=== PATIENT | female | born 1995 | race Caucasian/White ===

== ENCOUNTER → 2018-09-22 13:39 | Outpatient (CLI) | payer OTHER, SELFPAY ==
[2018-09-22 18:26] LABS: Chlamydia Trachomatis by PCR Negative (Negative); Neisserai gonorrhoeae by PCR Negative (Negative); Probe Check PASS; Sample Adequacy Control PASS; Specimen Processing Control PASS
== END ==
PROVIDERS: Visit Provider Obstetrics & Gynecology
DX: Z11.3 Encounter for screening for infections with a predominantly sexual mode of transmission (principal)
CPT/HCPCS: 87491; 87591

== ENCOUNTER → 2019-11-28 | Outpatient (CLI) | payer OTHER, SELFPAY ==
[2019-11-28 15:19] LABS: Glucose 84 mg/dL (74-106); Vitamin D,25 Hydroxy 15.6 ng/mL
[2019-12-01 19:29] LABS: HPV Reflexed? NOT INDICATED
== END | disposition home or self-care (01) ==
PROVIDERS: Visit Provider Obstetrics & Gynecology
DX: R73.09 Other abnormal glucose (principal); N76.1 Subacute and chronic vaginitis
CPT/HCPCS: 36415; 82306; 82947; 83036; 88175; G0145

== ENCOUNTER 2019-11-30 21:28 | Emergency (ER) | payer OTHER, SELFPAY ==
[2019-11-30 21:29] VITALS: BP 148/94; PULSE 79; RESP 18; TEMP 36.5; O2SAT 97; BMI 49.7
--- NOTE | 2019-11-30 21:45 | EKG12_ITS ---
Test Reason : DYSRHYTHMIA Blood Pressure : / mmHG Vent. Rate : 075 BPM Atrial Rate : 075 BPM P-R Int : 158 ms QRS Dur : 098 ms QT Int : 394 ms P-R-T Axes : 046 012 041 degrees QTc Int : 439 ms Normal sinus rhythm Normal ECG Confirmed by EDVIN TANNER, GERBER ([id number]), editor magazine ROSEMARY QUINONES ([id number]) on 12/05/2019 3:11:26 PM Referred By: MR Confirmed By:CY PARDO MD
--- NOTE | 2019-11-30 21:50 | ED.RN ---
no old ekgs
[2019-11-30] MEDS: Ondansetron 4 MG/2 ML Vial IV (22:17)
[2019-11-30] MEDS: 0.9% Normal Saline 1,000 ML 1000 ML IV (22:17)
[2019-11-30 22:21] LABS: Absolute Lymphocyte Count 1.36 X10^3/uL (0.83-4.51); Absolute Neutrophil Count 8.9 X10^3/uL (2.0-7.7); Basophil# 0.02 X10^3/uL; Basophil% 0.2 % (0-1); Eosinophil# 0.06 X10^3/uL; Eosinophils% 0.6 % (0-5); Hematocrit 42.6 % (37-47); Lymphocyte # 1.36 X10^3/ul (4.0); Lymphocyte % 12.6 % (19-41); Mean Corp Hgb Conc 32.9 g/dL (32-36); Mean Corpuscular Hgb 27.2 pg (27.0-32.0); Mean Corpuscular Volume 82.9 fL (81-99); Mean Platelet Vol. 14.7 fl (6.2-12.0); Monocyte# 0.32 X10^3/uL; NRBC Flagged by Analyzer 0 % (0-5); Neutrophil # 8.92 X10^3/uL (2.7-7.7); Neutrophil % 82.9 % (47-70); Platelet Count 108 K/mm3 (150-450); RBC Distribution Width CV 12.3 % (11.6-14.6); RBC Distribution Width SD 37.2 fl (35.1-43.9); Red Blood Count 5.14 M/mm3 (4.2-5.4); White Blood Count 10.8 K/mm3 (4.4-11.0)
[2019-11-30 22:28] LABS: Internal QC Validated? YES +Cl - CLEAR BKGD; Pregnancy, Serum, hCG Quali. NEGATIVE Negative
[2019-11-30 22:47] LABS: Anion Gap 5 (5-15); BUN 14 mg/dL (7-18); BUN/Creat Ratio 15.9 RATIO (10-20); Calcium,Total 8.6 mg/dL (8.5-10.1); Chloride 108 mmol/L (98-107); Creatinine, Serum 0.88 mg/dL (0.55-1.02); EST Glomerular Filtration Rate 84 mL/min (>60); Est Glom Filt Rate - Afr Amer 102 mL/min (>60); Estimated Creatinine Clearance 99.44 ml/min; Glucose 141 mg/dL (74-106); Potassium 4.3 mmol/L (3.5-5.1); Sodium Level 139 mmol/L (136-145); Thyroid Stim Hormone (TSH) 0.76 uIU/mL (0.358-3.74)
--- NOTE | 2019-11-30 23:14 | ED.VISSUMM ---
- ER Visit Summary Date of Service: 11/30/19 Chief Complaint: [] History of Present Illness: The patient is a 24 F [] Physical Examination: [] Test Results: [] Emergency Department Course and Treatment: [] Treatment Plan: [] Disposition: [] Impression: [] This note was generated with [employer] software. It may contain incorrect words, spelling, and punctuation that were not noted in review of the chart prior to signing ED Disposition - Plan for ED Patient: Disposition: Home or Assisted Living Diagnosis: Palpitations Instructions: ED Palpitations Referrals: Care Physician,No Primary [Primary Care Provider] - Additional Instructions: Followup with your PCP as needed
[2019-11-30 23:28] VITALS: BP 153/93; PULSE 73; RESP 20; O2SAT 99
== END 2019-11-30 23:29 | disposition home or self-care (01) ==
PROVIDERS: Emergency Provider Emergency Medicine
DX: R00.2 Palpitations (principal); D69.3 Immune thrombocytopenic purpura; E66.9 Obesity, unspecified; Z68.42 Body mass index [BMI] 45.0-49.9, adult
CPT/HCPCS: 80048; 83735; 84443; 84484; 84703; 85025; 93005; 96361; 96374; 99284; J7030; A4216; J2405

== ENCOUNTER → 2020-04-23 | Outpatient (CLI) | payer OTHER, SELFPAY ==
[2020-04-27 03:06] LABS: Chlamydia By Nucleic Acid AMP Negative (Negative)
[2020-04-27 14:09] LABS: Gonococcus By Nucleic Acid AMP Negative (Negative)
== END | disposition home or self-care (01) ==
LOC: LABSPEC 15:13
PROVIDERS: Visit Provider Student in an Organized Health Care Education/Training Program
DX: Z11.3 Encounter for screening for infections with a predominantly sexual mode of transmission (principal)
CPT/HCPCS: 87491; 87591

== ENCOUNTER → 2020-04-29 13:29 | Outpatient (CLI) | payer OTHER, SELFPAY ==
[2020-04-29 18:05] LABS: hCG Titer Quant., Serum < 1 mIU/mL (1-3)
== END ==
PROVIDERS: Visit Provider Student in an Organized Health Care Education/Training Program
DX: R10.9 Unspecified abdominal pain (principal)
CPT/HCPCS: 36415; 84702

== ENCOUNTER 2020-04-29 13:40 | Emergency (ER) | payer OTHER, SELFPAY ==
[2020-04-29 13:41] VITALS: BP 138/90; PULSE 78; RESP 16; TEMP 36.6; O2SAT 99; BMI 45.2
--- NOTE | 2020-04-29 14:00 | CT_ITS ---
STUDY: CT ABDOMEN AND PELVIS WITH CONTRAST REASON FOR EXAM: Female, 24 years old. LLQ Pain, diarrhea RADIATION DOSAGE (If Supplied By Facility): CTDIvol = ( 17.07 ) mGy, DLP = ( 1333.95 ) mGycm TECHNIQUE: Transaxial images were obtained from the dome of the diaphragm to the symphysis pubis without oral contrast. IV 100mL Isovue-370 was administered. Sagittal and coronal images were reconstructed. Individualized dose optimization techniques were used for this CT. COMPARISON: None. FINDINGS: The visualized lung bases are unremarkable. The visualized portions of the heart are within normal limits. Normal liver. Normal gallbladder and extrahepatic biliary system. Normal spleen. Normal pancreas. Normal bilateral adrenal glands. There is a 1.5 cm x 1.7 cm cyst in the posterior aspect of the upper pole of the right kidney. Normal left kidney. Normal visualized stomach. Normal small intestine. Mild degree of the inflammatory changes are seen in the peritoneal fat surrounding the sigmoid colon. Early sigmoid diverticulitis should be ruled out. The appendix is visualized and appears normal. Normal abdominal aorta. Normal inferior vena cava. There is borderline retroperitoneal lymphadenopathy with enlarged nodes no greater than 10mm in the short axis diameter. Normal urinary bladder. IUD is seen within the uterus. Small follicles are seen in the right ovary. Normal abdominal wall. Straightening of the normal lumbar lordosis. CT/Abdomen/Pelvis W IV Cont ONLY IMPRESSION: Findings suggest a mild degree of the sigmoid diverticulitis. IUD is seen within the uterus. Electronically Signed: Redd Richard, at 14:57 EDT , Service support ,
--- NOTE | 2020-04-29 14:03 | ED.VIS.GEN ---
History of Present Illness Chief Complaint: Abd Pain Detail of Chief Complaint: Left lower quadrant abdominal pain Informant: Patient Onset: Yesterday Context: Sudden Onset Timing: Continuous Quality: Sharp pain Location: Left lower quadrant Current Severity: Mild Maximum Severity: Moderate Worsened by: Walking, palpation by cleaning professional Relieved by: Nothing Associated Symptoms: Chronic diarrhea due to IBS Narrative: Patient is a 24-year-old female who presents with left lower quadrant abdominal pain that started yesterday. She was seen today by her cleaning professional because her IUD was changed last week. Ultrasound reveals IUD in proper position. There is no evidence of perforation. There is no evidence of ovarian cysts or free fluid in the pelvis. She denies fever, chills night sweats. She denies blood or mucus in her stool. She denies dysuria, frequency, urgency or hematuria. She has no history of renal ureterolithiasis. She denies history of endometriosis. She denies nausea or vomiting. There is no family history of inflammatory bowel disorder. There is no history of trauma. Patient is not noted any skin rash or lesions. Prior similar symptoms: No Recent Illness/Hospitalization: No - Past Medical History (1) History of IBS Status: Acute (2) History of ovarian cyst Status: Acute Past Medical History - Allergies and Home Meds Allergies/Adverse Reactions: Allergies NSAIDS (Non-Steroidal Anti-Inflamma Adverse Reaction (Verified 04/29/20 13:42) NEEDS FOLLOW-UP Primary Care Physician: Tawana Richey MD [Primary Care Provider] - Prior records reviewed: Yes Surgical History: noncontributory Lives: With Family Smoking Status: Never smoker Alcohol: None Drugs: None Review of Systems General: Denies: Chills, Fever, Malaise, Subjective ENT: Denies: Rhinorrhea, Sore throat Cardiovascular: Denies: Chest pain, Palpitations Respiratory: Denies: Dyspnea, Cough, Dyspnea on exertion Gastrointestinal: Reports: Abdominal pain, Diarrhea. Denies: Nausea, Vomiting, Constipation, Melena, Hematochezia, -, - Genitourinary: Denies: Dysuria, Hematuria, Frequency Musculoskeletal: Denies: Myalgias, Arthralgias, Neck pain, Back pain, Swelling, Extremity Pain, -, - Skin: Denies: Rash, Wounds Endocrine: Denies: Polyuria, Polydipsia Hematologic: Denies: Easy bruising, Easy bleeding Physical Exam Vital Signs/Narrative: Vital Signs Temp Pulse Resp BP Pulse Ox 04/29/20 13:41 97.8 F 78 16 138/90 H 99 Inital Vital Signs reviewed: Yes General: Well nourished, Well developed, Obese Head: Normocephalic, Atraumatic Eyes: Perrl, EOMI ENT: Moist mucous membranes, No rhinorrhea, TM's clear Neck: Supple, Nontender, No lymphadenopathy, No JVD Cardiovascular: Regular rate, Regular rhythm, No murmurs, Normal S1, Normal S2 Respiratory: No distress, CTA bilaterally, Chest nontender Abdomen: Soft, Nondistended, Normal bowel sounds, Tender, Guarding, - - Pain to left lower quadrant with palpation on the right side Back: Nontender, Normal Inspection. Negative for: CVA tenderness Extremities: Nontender, No edema Skin: Normal color, No rash Neurological: Alert, Oriented x3, Cranial nerves II-XII grossly intact, Normal Strength, Normal Sensation Psychological: Normal affect Diagnostic/Tx/Re-eval Impressions Abdomen/Pelvis CT 04/29/20 14:00 IMPRESSION: Findings suggest a mild degree of the sigmoid diverticulitis. IUD is seen within the uterus. Electronically Signed: Redd Jose Manuel, at 14:57 EDT , Service support , 04/29/20 14:00 Abdomen/Pelvis W IV Cont ONLY [CT] Stat Laboratory Results 04/29/20 04/29/20 14:08 14:08 WBC 5.4 RBC 4.89 Hgb 13.6 Hct 41.4 MCV 84.7 MCH 27.8 MCHC 32.9 RDW Std Deviation 35.9 RDW Coeff of Milagro 11.9 Plt Count 90 L MPV 13.2 H Immature Gran % (Auto) 0.400 Neut % (Auto) 59.0 Lymph % (Auto) 24.3 [place] % (Auto) 7.3 Eos % (Auto) 8.6 H Baso % (Auto) 0.4 Absolute Neuts (auto) 3.2 Absolute Lymphs (auto) 1.30 Nucleated RBC % 0 Differential Comment SCANNED Sodium 139 Potassium 3.8 Chloride 107 Carbon Dioxide 27.0 Anion Gap 5 BUN 12 Creatinine 0.70 Estim Creat Clear Calc 125.01 Est GFR (MDRD) Af Amer 133 Est GFR (MDRD) Non-Af 110 BUN/Creatinine Ratio 17.3 Glucose 86 Calcium 8.7 He has evidence of sigmoid diverticulitis. Since her vital signs are normal and white count is normal we will treat as an outpatient. - Medical Decision Making With recent pelvic ultrasound that was negative need to evaluate for exacerbation of your bowel syndrome, ulcerative colitis, Crohn's disease versus other colonic pathology. There was no evidence of gynecologic pathology that explains patient's symptoms. Therefore, CT of the abdomen and pelvis was obtained as well as appropriate blood work. Patient received first dose of Augmentin in the emergency department was discharged to home with appropriate home-going instructions ED Disposition - Plan for ED Patient: Disposition: Home or Assisted Living Diagnosis: Sigmoid diverticulitis Instructions: ED Diverticulitis Prescriptions: Amox/Clavulanate Tablet [Augmentin Tablet] 875 mg PO Q12H #20 tab Transmission Status: Pending to [facility]/pharmacy #[id number] Referrals: Tawana Richey MD [Primary Care Provider] - 3-5 Days
[2020-04-29 14:23] LABS: Absolute Neutrophil Count 3.2 X10^3/uL (2.0-7.7); Basophil# 0.02 X10^3/uL; Basophil% 0.4 % (0-1); Eosinophil# 0.46 X10^3/uL; Eosinophils% 8.6 % (0-5); Hematocrit 41.4 % (37-47); Hemoglobin 13.6 g/dL (12.0-15.0); Lymphocyte % 24.3 % (19-41); Mean Corp Hgb Conc 32.9 g/dL (32-36); Mean Corpuscular Hgb 27.8 pg (27.0-32.0); Mean Corpuscular Volume 84.7 fL (81-99); Mean Platelet Vol. 13.2 fl (6.2-12.0); Monocyte# 0.39 X10^3/uL; Monocyte% 7.3 % (0-10); NRBC Flagged by Analyzer 0 % (0-5); Neutrophil # 3.17 X10^3/uL (2.7-7.7); POSITIVE COUNT YES; Platelet Count 90 K/mm3 (150-450); RBC Distribution Width CV 11.9 % (11.6-14.6); RBC Distribution Width SD 35.9 fl (35.1-43.9); Red Blood Count 4.89 M/mm3 (4.2-5.4); White Blood Count 5.4 K/mm3 (4.4-11.0)
[2020-04-29 14:25] LABS: Differential Indicated SCAN CRITERIA MET
[2020-04-29 14:32] LABS: Anion Gap 5 (5-15); BUN 12 mg/dL (7-18); BUN/Creat Ratio 17.3 RATIO (10-20); Calcium,Total 8.7 mg/dL (8.5-10.1); Chloride 107 mmol/L (98-107); EST Glomerular Filtration Rate 110 mL/min (>60); Est Glom Filt Rate - Afr Amer 133 mL/min (>60); Estimated Creatinine Clearance 125.01 ml/min; Glucose 86 mg/dL (74-106); Potassium 3.8 mmol/L (3.5-5.1); Sodium Level 139 mmol/L (136-145)
[2020-04-29 14:49] LABS: Differential Comment SCANNED
[2020-04-29] MEDS: Amox/Clavulanate 875 MG Tablet PO (15:16)
== END 2020-04-29 15:18 | disposition home or self-care (01) ==
PROVIDERS: Emergency Provider Emergency Medicine; PCP Family Medicine
DX: K57.32 Diverticulitis of large intestine without perforation or abscess without bleeding (principal); K58.9 Irritable bowel syndrome, unspecified; E66.9 Obesity, unspecified; Z68.42 Body mass index [BMI] 45.0-49.9, adult
CPT/HCPCS: 74177; 80048; 85025; 99281; 99284; Q9967; A4216

== ENCOUNTER 2020-04-30 20:51 | Emergency (ER) | payer OTHER, SELFPAY ==
[2020-04-29 13:41] VITALS: BMI 45.2
[2020-04-30 20:52] VITALS: BP 132/87; PULSE 81; RESP 16; TEMP 35.7; O2SAT 99; BMI 45.1
[2020-04-30 21:03] VITALS: BP 132/87; PULSE 81; RESP 16; TEMP 36.3; O2SAT 99
--- NOTE | 2020-04-30 21:04 | ED.DCSUM_ITS ---
History of Present Illness Chief Complaint: Abd Pain Informant: Patient Narrative: 24-year-old female with past medical history of anxiety, depression, IBS, GERD presents with concern for nausea, vomiting, abdominal pain, dizziness. Patient diagnosed with diverticulitis yesterday. Patient discharged home on Augmentin. Patient states she has been taking the medication. States she got very nauseous today and felt like she is going to pass out. Denies any hematochezia or melena. States her abdominal pain is left lower quadrant without change. Past Medical History - Allergies and Home Meds Allergies/Adverse Reactions: Allergies NSAIDS (Non-Steroidal Anti-Inflamma Adverse Reaction (Verified 04/30/20 20:55) NEEDS FOLLOW-UP Primary Care Physician: Tawana Richey MD [Primary Care Provider] - Prior records reviewed: Yes Past Medical History: - - IBS, GERD, anxiety, and depression. Surgical History: noncontributory Lives: With Family Smoking Status: Never smoker Alcohol: None Drugs: None Review of Systems General: Reports: Malaise. Denies: Chills, Fever, Sweats Eyes: Denies: Visual changes - bilaterally, Diplopia ENT: Denies: Rhinorrhea, Sore throat Cardiovascular: Denies: Chest pain, Palpitations Respiratory: Denies: Dyspnea, Cough, Dyspnea on exertion Gastrointestinal: Reports: Abdominal pain, Nausea, Vomiting. Denies: Diarrhea, Melena, Hematochezia Genitourinary: Denies: Dysuria, Hematuria, Frequency Musculoskeletal: Denies: Back pain, Extremity Pain Skin: Denies: Rash, Wounds Neurological: Denies: Headache, Weakness, Numbness Physical Exam Vital Signs/Narrative: Vital Signs Temp Pulse Resp BP Pulse Ox 04/30/20 20:52 96.3 F L 81 16 132/87 H 99 Inital Vital Signs reviewed: Yes General: Well nourished, Well developed, No Acute Distress Head: Normocephalic, Atraumatic Eyes: Perrl, EOMI ENT: Moist mucous membranes, No rhinorrhea Neck: Supple, Nontender Cardiovascular: Regular rate, Regular rhythm, No murmurs Respiratory: No distress, CTA bilaterally, Chest nontender Abdomen: Soft, Nondistended, Normal bowel sounds, - - TTP in the LLQ. No rebound. No peritonitis. Back: Nontender, Normal Inspection Extremities: Nontender, No edema Skin: Normal color, No rash Neurological: Alert, Oriented x3, Cranial nerves II-XII grossly intact, Normal Strength, Normal Sensation Psychological: Normal affect, Normal Mood Diagnostic/Tx/Re-eval Laboratory Data 04/30/20 04/30/20 21:08 21:08 WBC 6.5 RBC 4.95 Hgb 13.6 Hct 42.3 MCV 85.5 MCH 27.5 MCHC 32.2 RDW Std Deviation 37.5 RDW Coeff of Milagro 12.1 Plt Count 109 L MPV 12.9 H Immature Gran % (Auto) 0.300 Neut % (Auto) 60.3 Lymph % (Auto) 23.9 [place] % (Auto) 7.5 Eos % (Auto) 7.7 H Baso % (Auto) 0.3 Absolute Neuts (auto) 3.9 Absolute Lymphs (auto) 1.56 Nucleated RBC % 0 Sodium 139 Potassium 3.7 Chloride 105 Carbon Dioxide 28.0 Anion Gap 6 BUN 6 L Creatinine 0.84 Estim Creat Clear Calc 104.18 Est GFR (MDRD) Af Amer 106 Est GFR (MDRD) Non-Af 88 BUN/Creatinine Ratio 7.1 L Glucose 89 Calcium 8.5 Total Bilirubin 0.60 AST 13 L ALT 23 Alkaline Phosphatase 64 Total Protein 7.0 Albumin 3.6 Globulin 3.4 Albumin/Globulin Ratio 1.1 - Medical Decision Making Patient appears well nontoxic. Is nauseous and having some abdominal pain. Lab work within normal limits. Patient was given fluid bolus, morphine, Zofran. Patient will be given Zofran for home and asked to continue to take the Augmentin. Asked to return for fever worsening abdominal pain. Patient agreeable and discharged home in stable condition. Impression: 1. Acute diverticulitis 2. Nausea ED Disposition - Plan for ED Patient: Disposition: Home or Assisted Living Instructions: ED Diverticulitis Prescriptions: Ondansetron [Zofran Odt] 4 mg PO Q8H PRN PRN #10 tab PRN Reason: Nausea Prescription Printed Referrals: Tawana Richey MD [Primary Care Provider] - 2 Days
[2020-04-30 21:16] LABS: Absolute Lymphocyte Count 1.56 X10^3/uL (0.83-4.51); Absolute Neutrophil Count 3.9 X10^3/uL (2.0-7.7); Basophil# 0.02 X10^3/uL; Basophil% 0.3 % (0-1); Eosinophils% 7.7 % (0-5); Hematocrit 42.3 % (37-47); Hemoglobin 13.6 g/dL (12.0-15.0); Lymphocyte # 1.56 X10^3/ul (4.0); Lymphocyte % 23.9 % (19-41); Mean Corp Hgb Conc 32.2 g/dL (32-36); Mean Corpuscular Hgb 27.5 pg (27.0-32.0); Mean Corpuscular Volume 85.5 fL (81-99); Mean Platelet Vol. 12.9 fl (6.2-12.0); Monocyte# 0.49 X10^3/uL; Monocyte% 7.5 % (0-10); NRBC Flagged by Analyzer 0 % (0-5); Neutrophil # 3.94 X10^3/uL (2.7-7.7); Neutrophil % 60.3 % (47-70); Platelet Count 109 K/mm3 (150-450); RBC Distribution Width CV 12.1 % (11.6-14.6); RBC Distribution Width SD 37.5 fl (35.1-43.9); Red Blood Count 4.95 M/mm3 (4.2-5.4); White Blood Count 6.5 K/mm3 (4.4-11.0)
[2020-04-30] MEDS: Ondansetron 4 MG/2 ML Vial IV (21:18)
[2020-04-30] MEDS: Morphine 4 MG/ML Syringe IV (21:18)
[2020-04-30] MEDS: 0.9% Normal Saline 1,000 ML 1000 ML IV (21:18)
[2020-04-30 22:08] LABS: ALB/GLOB Ratio 1.1 RATIO (0.9-2.4); AST(SGOT) 13 U/L (15-37); Alanine Aminotransfer ALT/SGPT 23 U/L (13-56); Albumin, Serum 3.6 g/dL (3.2-5.0); Alkaline Phosphatase 64 U/L (45-117); Anion Gap 6 (5-15); BUN 6 mg/dL (7-18); BUN/Creat Ratio 7.1 RATIO (10-20); Calcium,Total 8.5 mg/dL (8.5-10.1); Chloride 105 mmol/L (98-107); Creatinine, Serum 0.84 mg/dL (0.55-1.02); EST Glomerular Filtration Rate 88 mL/min (>60); Est Glom Filt Rate - Afr Amer 106 mL/min (>60); Estimated Creatinine Clearance 104.18 ml/min; Globulin 3.4 g/dL (2.2-4.2); Glucose 89 mg/dL (74-106); Potassium 3.7 mmol/L (3.5-5.1); Sodium Level 139 mmol/L (136-145)
[2020-04-30 22:26] VITALS: BP 113/73; PULSE 69; RESP 15; O2SAT 100
== END 2020-04-30 22:33 | disposition home or self-care (01) ==
PROVIDERS: Emergency Provider Emergency Medicine; PCP Family Medicine
DX: K57.92 Diverticulitis of intestine, part unspecified, without perforation or abscess without bleeding (principal); K21.9 Gastro-esophageal reflux disease without esophagitis; K58.9 Irritable bowel syndrome, unspecified; F32.9 Major depressive disorder, single episode, unspecified; F41.9 Anxiety disorder, unspecified
CPT/HCPCS: 80053; 85025; 96361; 96374; 96375; 99281; J7030; A4216; J2405

== ENCOUNTER 2021-09-10 06:43 | Emergency (ER) | payer OTHER, SELFPAY ==
[2021-09-10 06:45] VITALS: BP 90/77; PULSE 98; RESP 18; TEMP 36.8; O2SAT 100; BMI 44.9
--- NOTE | 2021-09-10 07:07 | EDS_ITS ---
HPI History of Present Illness Chief Complaint: General Illness Informant: patient Narrative Narrative: 25-year-old female presents to the emergency room chief complaint of vomiting. Patient states that she had a migraine headache yesterday and today noted that it was getting better but then she had vomiting and believes she passed out in the bathroom while vomiting. She denies any diarrhea. She denies any bad food exposure or recent antibiotics. No recent travel. No rashes. No cough shortness of breath sore throat rhinorrhea or otalgia. No chest pain. 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 Depression Diverticulosis Home Medications desvenlafaxine 100 mg PO DAILY 11/30/19 [History Last Taken 04/29/20] levonorgestrel 1 ea IY X1 11/30/19 [History Last Taken Unknown] ondansetron 4 mg PO Q8H PRN PRN #10 tab 04/30/20 [Rx Last Taken Unknown] pantoprazole 40 mg PO DAILY 04/30/20 [History Last Taken Unknown] metformin mg PO 09/10/21 [History Last Taken Unknown] promethazine 25 mg PO Q6H PRN PRN #10 tablet 09/10/21 [Rx Last Taken Unknown] Allergy/AdvReac Type Severity Reaction Status Date / Time NSAIDS (Non-Steroidal AdvReac NEEDS Verified 04/30/20 20:55 Anti-Inflamma FOLLOW-UP Social History (Updated 09/10/21 @ 07:[address] Donta Scott DO) Smoking Status: Never smoker substance use type: does not use ROS ROS ED Constitutional Constitutional ED: Denies chills, fever(s) or weight loss Eyes Eyes: Denies change in vision or diplopia ENT ENT ED: Denies ear pain, rhinorrhea or sore throat Cardiovascular Cardiovascular: Denies chest pain, orthopnea, palpitations or racing heartbeat Respiratory/Chest Respiratory/Chest: Denies cough, dyspnea or orthopnea Gastrointestinal Gastrointestinal: Reports nausea and vomiting; Denies abdominal pain or diarrhea Genitourinary Genitourinary ED: Denies dysuria, hematuria or urinary frequency Musculoskeletal Musculoskeletal: Denies arthralgias or myalgias Integumentary Denies abscess or rash Neurologic Neurologic: Reports headache(s); Denies weakness Psychiatric Psychiatric: Denies anxiety, depression, suicidal ideation or suicidal thoughts Endocrine Endocrinology: Denies polydipsia, polyphagia or polyuria Allergic/Immunologic Allergic/Immunologic ED: Denies mouth swelling, tongue swelling or urticaria EXAM Physical Exam Narrative Exam Narrative: Patient appears pale and slightly diaphoretic. Noted blood pressure of 90/77 Const Vital Signs: 09/10/21 06:45 09/10/21 06:54 Temperature 98.3 F Temperature Source Oral Pulse Rate 98 Respiratory Rate 18 Respiratory Pattern Normal Blood Pressure 90/77 Blood Pressure Mean 81 Pulse Ox 100 Oxygen Delivery Method Room Air Positive well nourished, well developed and obese General Appearance ED: well developed Nutritional Appearance: obese HEENT Reports normocephalic, head/scalp atraumatic, TM's clear and moist mucous membranes HEENT Narrative: Lips are pale Negative for trauma Tympanic Membrane ED: Yes TM's clear Eyes PERRL and EOMs intact bilaterally Neck no lymphadenopathy, supple and no JVD Resp normal respiratory effort and clear to auscultation bilaterally Cardio regular rate, regular rhythm and no murmurs GI normal to inspection, nondistended, normoactive bowel sounds and non-tender Palpation: soft Back/Spine no CVA tenderness and normal ROM Extremity normal to inspection General Extremety ED: Negative for edema General Extremity: Negative for edema Neuro oriented x3 and CN's II-XII intact bilaterally Sensorium / Orientation: alert Motor Exam: strength 5/5 throughout Psych mental status grossly normal Mood & Affect: Negative for depressed or tearful Skin no rashes or lesions noted and no wounds MDM MDM MDM Narrative Medical decision making narrative: The patient received Zofran and IV fluids. Her blood pressure is better. She is no longer diaphoretic or pale. Overall she feels improved. Blood work showed a white count of 13.1 hemoglobin 15.4 and platelet count of 132. CMP unremarkable. She is not . I will write for the patient to have nausea medication at home. Her EKG was normal and I suspect she had a vagal syncope due to the emesis. Lab Data Attestation: I reviewed the patient's lab results. Labs: Laboratory Results - last 24 hr 09/10/21 09/10/21 09/10/21 07:22 07:22 07:22 WBC 13.1 H RBC 5.47 H Hgb 15.4 H Hct 45.0 MCV 82.3 MCH 28.2 MCHC 34.2 RDW Std Deviation 37.0 RDW Coeff of Milagro 12.3 Plt Count 132 L MPV 11.9 Immature Gran % (Auto) 0.500 Neut % (Auto) 87.5 H Lymph % (Auto) 4.7 L [place] % (Auto) 6.0 Eos % (Auto) 1.1 Baso % (Auto) 0.2 Absolute Neuts (auto) 11.4 H Absolute Lymphs (auto) 0.61 L Nucleated RBC % 0 Sodium 137 Potassium 3.7 Chloride 108 H Carbon Dioxide 22.0 Anion Gap 7 BUN 14 Creatinine 0.82 Estim Creat Clear Calc 105.80 Est GFR (MDRD) Af Amer 109 Est GFR (MDRD) Non-Af 90 BUN/Creatinine Ratio 17.1 Glucose 113 H Calcium 9.1 Total Bilirubin 0.80 AST 11 L ALT 19 Alkaline Phosphatase 64 Total Protein 6.9 Albumin 3.5 Globulin 3.4 Albumin/Globulin Ratio 1.0 Lipase 84 Serum , Qual NEGATIVE EKG Initial EKG: Attestation: I personally reviewed and interpreted this EKG as follows: Comments: Normal sinus rhythm ventricular rate of 84 bpm Discharge Plan Triage Chief Complaint: General Illness ED Provider: Donta Scott Dx/Rx/DC Orders Clinical Impression: Vomiting, Vasovagal syncope Instructions: ED Fainting, Vagal Reaction, ED Vomiting (Adult) Prescriptions: New promethazine [promethazine] 25 MG tablet 25 mg PO Q6H PRN PRN (Reason: Nausea) Qty: 10 RF: 0 No Action desvenlafaxine 100 MG tablet extended release 24 hr 100 mg PO DAILY RF: 0 levonorgestrel 1 EACH intrauterine device 1 ea IY X1 RF: 0 pantoprazole 40 MG tablet 40 mg PO DAILY RF: 0 ondansetron 4 MG tablet 4 mg PO Q8H PRN PRN (Reason: Nausea) Qty: 10 RF: 0 metformin 500 mg tablet extended release 24 hr PO RF: 0 Primary Care Provider: Tawana Richey Referrals: Tawana Richey MD [Primary Care Provider] - As Needed Disposition Disposition: Home, Self Care
[2021-09-10] MEDS: 0.9% Normal Saline 1,000 ML 1000 ML IV (07:14)
[2021-09-10] MEDS: Ondansetron 4 MG/2 ML Vial IV (07:14)
[2021-09-10 07:29] LABS: Absolute Lymphocyte Count 0.61 X10^3/uL (0.83-4.51); Absolute Neutrophil Count 11.4 X10^3/uL (2.0-7.7); Basophil# 0.03 X10^3/uL; Basophil% 0.2 % (0-1); Eosinophil# 0.15 X10^3/uL; Eosinophils% 1.1 % (0-5); Hemoglobin 15.4 g/dL (12.0-15.0); Lymphocyte # 0.61 X10^3/ul (0.83-4.51); Lymphocyte % 4.7 % (19-41); Mean Corp Hgb Conc 34.2 g/dL (32-36); Mean Corpuscular Hgb 28.2 pg (27.0-32.0); Mean Corpuscular Volume 82.3 fL (81-99); Mean Platelet Vol. 11.9 fl (6.2-12.0); Monocyte# 0.79 X10^3/uL; NRBC Flagged by Analyzer 0 % (0-5); Neutrophil # 11.42 X10^3/uL (2.7-7.7); Neutrophil % 87.5 % (47-70); Platelet Count 132 K/mm3 (150-450); RBC Distribution Width CV 12.3 % (11.6-14.6); Red Blood Count 5.47 M/mm3 (4.2-5.4); White Blood Count 13.1 K/mm3 (4.4-11.0)
[2021-09-10 07:46] LABS: Internal QC Validated? YES +Cl - CLEAR BKGD; Pregnancy, Serum, hCG Quali. NEGATIVE Negative
[2021-09-10 07:47] LABS: AST(SGOT) 11 U/L (15-37); Alanine Aminotransfer ALT/SGPT 19 U/L (13-56); Albumin, Serum 3.5 g/dL (3.2-5.0); Alkaline Phosphatase 64 U/L (45-117); Anion Gap 7 (5-15); BUN 14 mg/dL (7-18); BUN/Creat Ratio 17.1 RATIO (10-20); Calcium,Total 9.1 mg/dL (8.5-10.1); Chloride 108 mmol/L (98-107); Creatinine, Serum 0.82 mg/dL (0.55-1.02); EST Glomerular Filtration Rate 90 mL/min (>60); Est Glom Filt Rate - Afr Amer 109 mL/min (>60); Globulin 3.4 g/dL (2.2-4.2); Glucose 113 mg/dL (74-106); Lipase 84 U/L (73-393); Potassium 3.7 mmol/L (3.5-5.1); Protein, Total 6.9 g/dL (6.4-8.2); Sodium Level 137 mmol/L (136-145)
--- NOTE | 2021-09-10 07:47 | EKG12_ITS ---
Test Reason : GENERAL ILLNESS Blood Pressure : / mmHG Vent. Rate : 084 BPM Atrial Rate : 084 BPM P-R Int : 158 ms QRS Dur : 104 ms QT Int : 382 ms P-R-T Axes : 036 026 055 degrees QTc Int : 451 ms Normal sinus rhythm Normal ECG Confirmed by KAILEY TANNER, SHEREEN ([id number]), deputy editor in chief GUERRERO MARIN ([id number]) on 09/12/2021 9:49:33 AM Referred By: Confirmed By:SHEREEN BONNER MD
[2021-09-10 09:14] VITALS: BP 107/62; PULSE 88; RESP 16; O2SAT 100
== END 2021-09-10 09:15 | disposition home or self-care (01) ==
PROVIDERS: Emergency Provider Emergency Medicine; PCP Family Medicine; Visit Provider Emergency Medicine
DX: R11.10 Vomiting, unspecified (principal); Z68.41 Body mass index [BMI] 40.0-44.9, adult; R55 Syncope and collapse; E66.9 Obesity, unspecified
CPT/HCPCS: 80053; 83690; 84703; 85025; 93005; 96361; 96374; 99285; J7030; J2405